=== PATIENT | female | born 2000 ===

== ENCOUNTER 2023-09-11 04:57 | Day surgery (SDC) | payer OTHER ==
[2023-09-06 13:27] VITALS: BMI 33.5
[2023-09-11] MEDS ORDERED: FENTANYL CITRATE/PF 50 MCG/ML VIAL ONE ×4 (09:14→10:36)
[2023-09-11] MEDS ORDERED: MIDAZOLAM HCL 2 MG/2 ML SINGLE DOSE VIAL ONE (09:14)
[2023-09-11] MEDS ORDERED: PROMETHAZINE HCL 25 MG/1 ML VIAL IVPB PRN (10:20)
[2023-09-11] MEDS ORDERED: oxyCODONE HCL 5 MG TABLET PO PRN (10:20)
[2023-09-11] MEDS ORDERED: LACTATED RINGERS SOLUTION 1,000 ML IV SCH (10:30)
[2023-09-11] MEDS: KETOROLAC TROMETHAMINE 30 MG/1 ML VIAL IVPUSH ONE (10:40)
[2023-09-11] MEDS ORDERED: KETOROLAC TROMETHAMINE 30 MG/1 ML VIAL ONE (10:41)
[2023-09-11] MEDS ORDERED: ACETAMINOPHEN INJECTION 100 ML IVPB ONE (10:41)
[2023-09-11] MEDS: ACETAMINOPHEN 1000 MG/100 ML BAG IVPB ONE (10:43)
[2023-09-11 11:52] VITALS: TEMP 97.8
[2023-09-11 14:59] VITALS: BP 128/75; PULSE 67; RESP 20
== END 2023-09-11 14:27 | disposition home or self-care (01) ==
LOC: JASU-SURG 04:57
PROVIDERS: ATTEND Obstetrics & Gynecology
PROC: 0UB98ZZ Excision of Uterus, Via Natural or Artificial Opening Endoscopic (ICD-10-PCS; principal; 2023-09-11 08:30)
DX: D25.0 Submucous leiomyoma of uterus (principal); N93.8 Other specified abnormal uterine and vaginal bleeding
CPT/HCPCS: 81025; 88305-TC; 94760; J0131